=== PATIENT | male | born 1940 | race Caucasian/White ===

== ENCOUNTER 2020-03-17 08:55 | Inpatient (IN) ==
[2020-03-17] MEDS ORDERED: Clindamycin 900 MG/D5W BAG 900 MG/50 ML BAG IVPB ONE (10:04)
[2020-03-17 10:41] LABS: ABS Basophils 0.1 10^3/ul (0-0.2); ABS Eosinophils 0.3 10^3/ul (0-0.6); ABS Lymphocytes 1.7 10^3/ul (1.0-4.8); ABS Monocytes 0.6 10^3/ul (0-0.8); ABS Neutrophils 5.5 10^3/ul (1.5-7.7); Eosinophil % 3.5 %; Hematocrit 36 % (42-52); Hemoglobin 12.3 g/dL (14.0-18.0); Lymphocyte % 20.8 %; Mean Corpuscular HGB Conc 34 g/dL (31-36); Mean Corpuscular Hemoglobin 30 pg (27-31); Mean Corpuscular Volume 89 fL (80-94); Mean Platelet Volume 8.1 fL (7.4-10.4); Platelet Count 256 10^3/uL (150-450); Red Blood Count 4.05 10^6 /uL (4.18-5.48); Red Cell Distribution Width 14 % (10-15); White Blood Count 8.2 10^3/uL (3.5-10.8)
[2020-03-17 11:16] LABS: BUN/Creatinine Ratio 16.1 (8-20); Calcium 9.4 mg/dL (8.6-10.3); EGFR African American 30.7 (>60); EGFR Non-African American 25.3 (>60); Potassium 4.6 mmol/L (3.5-5.0)
[2020-03-17] MEDS: D5W 1/2 NS 1000 ml BAG 1,000 ML IV SCH (12:35)
[2020-03-17] MEDS ORDERED: Iohexol 300 (CONTRAST) 10 ML SDV ONE (12:55)
[2020-03-17] MEDS ORDERED: Lidocaine 1% VIAL 10 MG/ML VIAL ONE ×2 (13:15→13:37)
[2020-03-17] MEDS: Clindamycin 300 MG IVPREMIX 300 MG/50 ML SDV IV SCH (20:13)
[2020-03-18] MEDS: D5W 1/2 NS 1000 ml BAG 1,000 ML IV SCH (00:04)
[2020-03-18] MEDS: Clindamycin 300 MG IVPREMIX 300 MG/50 ML SDV IV SCH ×3 (03:37→22:08)
[2020-03-18] MEDS ORDERED: NS 0.9% 1000 ml BAG 1,000 ML IV SCH (08:15)
[2020-03-18] MEDS: SPIRIVA Respimat (tiotropium) 2.5 mcg/inh Inhaler INH SCH (08:32)
[2020-03-18 09:52] LABS: BUN/Creatinine Ratio 15.5 (8-20); Calcium 8.7 mg/dL (8.6-10.3); EGFR African American 31.1 (>60); EGFR Non-African American 25.7 (>60); Potassium 4.3 mmol/L (3.5-5.0)
[2020-03-18] MEDS: Fluticasone NASAL SPRAY 50MCG 16 gm SPRAY BTL INTRANASAL SCH (10:19)
[2020-03-18] MEDS: Mirabegron 50 mg ER TAB (NF) PO SCH (10:19)
[2020-03-19] MEDS: Clindamycin 300 MG IVPREMIX 300 MG/50 ML SDV IV SCH (04:13)
[2020-03-19] MEDS: SPIRIVA Respimat (tiotropium) 2.5 mcg/inh Inhaler INH SCH (08:01)
[2020-03-19 08:22] LABS: BUN/Creatinine Ratio 14.2 (8-20); Calcium 8.6 mg/dL (8.6-10.3); EGFR African American 28.2 (>60); EGFR Non-African American 23.3 (>60); Potassium 4.6 mmol/L (3.5-5.0)
[2020-03-19] MEDS: Fluticasone NASAL SPRAY 50MCG 16 gm SPRAY BTL INTRANASAL SCH (09:31)
[2020-03-19] MEDS: Mirabegron 50 mg ER TAB (NF) PO SCH (09:32)
[2020-03-19] MEDS ORDERED: Dextrose 50% Syringe 50 ml 25 GM/50 ML SYRINGE IV PUSH PRN (10:36)
[2020-03-19] MEDS: Heparin 5000 UNITS/ML 1 mL VIAL SUBCUT SCH ×2 (12:25→20:41)
[2020-03-19 13:00] LABS: Urine Appearance Clear; Urine Bilirubin Negative (Negative); Urine Blood 1+ (Negative); Urine Color Straw; Urine Glucose Negative (Negative); Urine Ketones Negative (Negative); Urine Nitrite Negative (Negative); Urine Protein Negative (Negative); Urine Specific Gravity 1.005 (1.010-1.030); Urine Urobilinogen Negative (Negative)
[2020-03-19 13:05] LABS: Urine Bacteria 1+ (Absent); Urine Red Blood Cell Trace(0-2/hpf) (Absent); Urine Squamous Epithelial Cell Present (Absent); Urine White Blood Cell Trace(0-5/hpf) (Absent)
[2020-03-19 20:27] LABS: Urine Appearance Clear; Urine Bilirubin Negative (Negative); Urine Blood 1+ (Negative); Urine Color Straw; Urine Glucose Negative (Negative); Urine Ketones Negative (Negative); Urine Nitrite Negative (Negative); Urine Protein Negative (Negative); Urine Specific Gravity 1.004 (1.010-1.030); Urine Urobilinogen Negative (Negative)
[2020-03-19 20:35] LABS: Urine Bacteria Absent (Absent); Urine Red Blood Cell Trace(0-2/hpf) (Absent); Urine White Blood Cell Absent (Absent)
[2020-03-20] MEDS: Heparin 5000 UNITS/ML 1 mL VIAL SUBCUT SCH ×3 (05:47→20:32)
[2020-03-20] MEDS: Fluticasone NASAL SPRAY 50MCG 16 gm SPRAY BTL INTRANASAL SCH (08:55)
[2020-03-20] MEDS: Mirabegron 50 mg ER TAB (NF) PO SCH (08:55)
[2020-03-20] MEDS: SPIRIVA Respimat (tiotropium) 2.5 mcg/inh Inhaler INH SCH (09:06)
[2020-03-20 10:39] LABS: Calcium 8.6 mg/dL (8.6-10.3); EGFR African American 29.6 (>60); EGFR Non-African American 24.4 (>60); Potassium 4.8 mmol/L (3.5-5.0)
[2020-03-20 11:51] LABS: Urine Creatinine Concentration 42.99 mg/dL
[2020-03-21] MEDS: Heparin 5000 UNITS/ML 1 mL VIAL SUBCUT SCH ×3 (05:10→20:00)
[2020-03-21 06:41] LABS: Hematocrit 32 % (42-52); Hemoglobin 11.3 g/dL (14.0-18.0); Mean Corpuscular HGB Conc 35 g/dL (31-36); Mean Corpuscular Hemoglobin 31 pg (27-31); Mean Corpuscular Volume 88 fL (80-94); Mean Platelet Volume 8.1 fL (7.4-10.4); Platelet Count 216 10^3/uL (150-450); Red Blood Count 3.67 10^6 /uL (4.18-5.48); Red Cell Distribution Width 14 % (10-15)
[2020-03-21 07:28] LABS: BUN/Creatinine Ratio 16.3 (8-20); Calcium 8.6 mg/dL (8.6-10.3); EGFR African American 31.8 (>60); EGFR Non-African American 26.3 (>60); Potassium 4.5 mmol/L (3.5-5.0)
[2020-03-21] MEDS ORDERED: Magnesium Sulfate 2 gm BAG 2 GM/50 ML BAG IVPB ONE (08:07)
[2020-03-21] MEDS: SPIRIVA Respimat (tiotropium) 2.5 mcg/inh Inhaler INH SCH (09:00)
[2020-03-21] MEDS: Fluticasone NASAL SPRAY 50MCG 16 gm SPRAY BTL INTRANASAL SCH (09:27)
[2020-03-21] MEDS: Mirabegron 50 mg ER TAB (NF) PO SCH (09:28)
[2020-03-21] MEDS ORDERED: Furosemide 20 mg/2 ml IV VIAL IV ONE (19:31)
[2020-03-22] MEDS: Heparin 5000 UNITS/ML 1 mL VIAL SUBCUT SCH ×3 (05:50→21:18)
[2020-03-22 06:50] LABS: Hematocrit 33 % (42-52); Hemoglobin 11.6 g/dL (14.0-18.0); Mean Corpuscular HGB Conc 35 g/dL (31-36); Mean Corpuscular Hemoglobin 30 pg (27-31); Mean Corpuscular Volume 88 fL (80-94); Platelet Count 223 10^3/uL (150-450); Red Blood Count 3.81 10^6 /uL (4.18-5.48); Red Cell Distribution Width 14 % (10-15)
[2020-03-22 07:06] LABS: BUN/Creatinine Ratio 19.8 (8-20); Calcium 8.8 mg/dL (8.6-10.3); EGFR African American 38.8 (>60); EGFR Non-African American 32.1 (>60); Magnesium 1.8 mg/dL (1.9-2.7); Potassium 4.4 mmol/L (3.5-5.0)
[2020-03-22] MEDS ORDERED: Magnesium Sulfate IV 1GM/100ML 1 GM/100 ML BAG IV ONE (08:59)
[2020-03-22] MEDS: Mirabegron 50 mg ER TAB (NF) PO SCH (09:38)
[2020-03-22] MEDS: Fluticasone NASAL SPRAY 50MCG 16 gm SPRAY BTL INTRANASAL SCH (11:20)
[2020-03-22] MEDS: SPIRIVA Respimat (tiotropium) 2.5 mcg/inh Inhaler INH SCH (11:55)
[2020-03-22] MEDS ORDERED: Furosemide 20 mg/2 ml IV VIAL IV ONE (12:35)
[2020-03-22] MEDS ORDERED: Ondansetron 4 mg VIAL 2 MG/ML 2 ml VIAL IV PRN (16:24)
[2020-03-23] MEDS: Heparin 5000 UNITS/ML 1 mL VIAL SUBCUT SCH ×2 (05:17→14:33)
[2020-03-23] MEDS: Fluticasone NASAL SPRAY 50MCG 16 gm SPRAY BTL INTRANASAL SCH (08:33)
[2020-03-23] MEDS: Mirabegron 50 mg ER TAB (NF) PO SCH (08:33)
[2020-03-23 08:37] LABS: Hematocrit 35 % (42-52); Hemoglobin 12.2 g/dL (14.0-18.0); Mean Corpuscular HGB Conc 35 g/dL (31-36); Mean Corpuscular Hemoglobin 30 pg (27-31); Mean Corpuscular Volume 88 fL (80-94); Mean Platelet Volume 8.3 fL (7.4-10.4); Platelet Count 234 10^3/uL (150-450); Red Cell Distribution Width 14 % (10-15); White Blood Count 10.1 10^3/uL (3.5-10.8)
[2020-03-23 08:51] LABS: BUN/Creatinine Ratio 21.4 (8-20); Calcium 9.3 mg/dL (8.6-10.3); EGFR African American 42.5 (>60); EGFR Non-African American 35.1 (>60); Magnesium 1.8 mg/dL (1.9-2.7); Potassium 4.6 mmol/L (3.5-5.0)
[2020-03-23] MEDS: SPIRIVA Respimat (tiotropium) 2.5 mcg/inh Inhaler INH SCH (09:25)
[2020-03-23] MEDS ORDERED: Magnesium Sulfate 2 gm BAG 2 GM/50 ML BAG IVPB ONE (09:35)
[2020-03-23 12:42] VITALS: BP 107/53
== END 2020-03-23 13:30 | DRG 243 ==
LOC: MEDTELE 08:55 → CHICATH 08:55
PROVIDERS: ADMIT Specialist; ATTEND Specialist

== ENCOUNTER 2020-09-30 14:25 | Inpatient (IN) ==
[2020-09-30] MEDS ORDERED: NS 0.9% 1000 ml BAG 1,000 ML IV ONE (14:31)
[2020-09-30 14:47] LABS: Hematocrit 37 % (42-52); Hemoglobin 12.2 g/dL (14.0-18.0); Mean Corpuscular HGB Conc 33 g/dL (31-36); Mean Corpuscular Hemoglobin 28 pg (27-31); Mean Corpuscular Volume 85 fL (80-94); Mean Platelet Volume 7.7 fL (7.4-10.4); Platelet Count 260 10^3/uL (150-450); Red Blood Count 4.31 10^6 /uL (4.18-5.48); Red Cell Distribution Width 15 % (10-15); White Blood Count 16.4 10^3/uL (3.5-10.8)
[2020-09-30] MEDS ORDERED: Alteplase (100 mg Vial) 100 mg VIAL ONE (14:52)
[2020-09-30] MEDS ORDERED: Alteplase (100 mg Vial) 100 mg VIAL IV ONE ×2 (14:53)
[2020-09-30 14:56] LABS: Activated Partial Thrombo Time 29.4 seconds (26.0-38.0); INR 1.39 (0.82-1.09)
[2020-09-30 15:00] LABS: ALT 7 U/L (7-52); AST 11 U/L (13-39); Albumin 3.1 g/dL (3.2-5.2); Albumin/Globulin Ratio 0.8 (1-3); Alkaline Phosphatase 69 U/L (34-104); Anion Gap 8 mmol/L (2-11); Blood Urea Nitrogen 39 mg/dL (6-24); CO2 Carbon Dioxide 30 mmol/L (22-32); Calcium 9.1 mg/dL (8.6-10.3); Chloride 96 mmol/L (101-111); Cholesterol 87 mg/dL; EGFR African American 69.5 (>60); EGFR Non-African American 57.4 (>60); Globulin 3.7 g/dL (2-4); Glucose 144 mg/dL (70-100); HDL Cholesterol 34.8 mg/dL; LDL Cholesterol 40 mg/dL; Potassium 3.8 mmol/L (3.5-5.0); Sodium 134 mmol/L (135-145); Total Protein 6.8 g/dL (6.4-8.9); Triglycerides 63 mg/dL
[2020-09-30 15:15] LABS: Troponin I 0.03 ng/mL (<0.03)
[2020-09-30] MEDS ORDERED: Iodixanol (CONTRAST) 320 MG/ML 100 ML SDV IV ONE (15:40)
[2020-09-30 15:56] LABS: ABS Basophils 0.1 10^3/ul (0-0.2); ABS Lymphocytes 0.9 10^3/ul (1.0-4.8); ABS Neutrophils 13.4 10^3/ul (1.5-7.7); Eosinophil % 0.1 %; Lymphocyte % 5.4 %
[2020-09-30] MEDS: Lactated Ringers 1000 ml BAG 1,000 ML IV SCH (19:45)
[2020-09-30] MEDS ORDERED: Enoxaparin 40 MG/0.4 ML SYR SUBCUT SCH (21:00)
[2020-10-01 05:12] LABS: Hematocrit 32 % (42-52); Hemoglobin 10.7 g/dL (14.0-18.0); Mean Corpuscular HGB Conc 33 g/dL (31-36); Mean Corpuscular Hemoglobin 28 pg (27-31); Mean Corpuscular Volume 85 fL (80-94); Mean Platelet Volume 7.3 fL (7.4-10.4); Platelet Count 217 10^3/uL (150-450); Red Blood Count 3.77 10^6 /uL (4.18-5.48); Red Cell Distribution Width 16 % (10-15); White Blood Count 13.6 10^3/uL (3.5-10.8)
[2020-10-01] MEDS: Lactated Ringers 1000 ml BAG 1,000 ML IV SCH (05:21)
[2020-10-01 05:30] LABS: Albumin 2.7 g/dL (3.2-5.2); Albumin/Globulin Ratio 0.8 (1-3); BUN/Creatinine Ratio 32.7 (8-20); Calcium 8.6 mg/dL (8.6-10.3); EGFR African American 80.9 (>60); EGFR Non-African American 66.8 (>60); Globulin 3.2 g/dL (2-4); Total Bilirubin 0.4 mg/dL (0.2-1.0); Total Protein 5.9 g/dL (6.4-8.9)
[2020-10-01 05:48] LABS: Activated Partial Thrombo Time 29.6 seconds (26.0-38.0); INR 1.34 (0.82-1.09)
[2020-10-01 06:08] LABS: Fibrinogen 642.3 mg/dL (110.8-404.3)
[2020-10-01] MEDS ORDERED: Potassium Chlor 20 meq TAB.ER PO ONE (07:16)
[2020-10-01 08:38] LABS: Urine Appearance Cloudy; Urine Bilirubin Negative (Negative); Urine Blood 1+ (Negative); Urine Color Yellow; Urine Glucose Negative (Negative); Urine Ketones Negative (Negative); Urine Nitrite Negative (Negative); Urine Protein 1+(30 mg/dL) (Negative); Urine Specific Gravity 1.018 (1.010-1.030); Urine Urobilinogen Negative (Negative)
[2020-10-01 08:43] LABS: Urine Bacteria Absent (Absent); Urine Red Blood Cell Trace(0-2/hpf) (Absent); Urine White Blood Cell 3+(>20/hpf) (Absent)
[2020-10-01] MEDS ORDERED: Magnesium Hydroxide LIQ 30 ML UDC PO PRN (11:58)
[2020-10-01] MEDS ORDERED: Senna TAB 8.6 mg TAB PO PRN (11:58)
[2020-10-01] MEDS: Nystatin TOP POWDER 15 GM BTL TOPICAL SCH ×2 (14:51→20:16)
[2020-10-01] MEDS: Mometasone/Formoter 100/5 MDI INH SCH (19:00)
[2020-10-02 04:53] LABS: Hematocrit 31 % (42-52); Hemoglobin 10.4 g/dL (14.0-18.0); Mean Corpuscular HGB Conc 33 g/dL (31-36); Mean Corpuscular Hemoglobin 29 pg (27-31); Mean Corpuscular Volume 86 fL (80-94); Mean Platelet Volume 7.5 fL (7.4-10.4); Platelet Count 224 10^3/uL (150-450); Red Blood Count 3.63 10^6 /uL (4.18-5.48); Red Cell Distribution Width 15 % (10-15); White Blood Count 11.4 10^3/uL (3.5-10.8)
[2020-10-02 04:55] LABS: ABS Basophils 0.1 10^3/ul (0-0.2); ABS Eosinophils 0.1 10^3/ul (0-0.6); ABS Lymphocytes 2.4 10^3/ul (1.0-4.8); ABS Monocytes 2.1 10^3/ul (0-0.8); ABS Neutrophils 6.7 10^3/ul (1.5-7.7); Eosinophil % 0.7 %; Lymphocyte % 21.1 %
[2020-10-02 05:13] LABS: BUN/Creatinine Ratio 30.1 (8-20); Calcium 8.3 mg/dL (8.6-10.3); EGFR African American 95.1 (>60); EGFR Non-African American 78.6 (>60); Potassium 3.5 mmol/L (3.5-5.0)
[2020-10-02] MEDS ORDERED: Potassium Chlor 20 meq TAB.ER PO ONE (07:08)
[2020-10-02] MEDS: Mometasone/Formoter 100/5 MDI INH SCH ×2 (07:51→19:48)
[2020-10-02] MEDS: Aspirin EC 81 mg TAB.EC (enteric coated) PO SCH (08:25)
[2020-10-02] MEDS: Nystatin TOP POWDER 15 GM BTL TOPICAL SCH ×3 (08:32→20:38)
[2020-10-03] MEDS ORDERED: Perflutren Lipid Microsphere 3 ML VIAL ONE (08:20)
[2020-10-03] MEDS: Mometasone/Formoter 100/5 MDI INH SCH ×2 (08:36→20:13)
[2020-10-03] MEDS: Aspirin EC 81 mg TAB.EC (enteric coated) PO SCH (09:21)
[2020-10-03] MEDS: Nystatin TOP POWDER 15 GM BTL TOPICAL SCH ×3 (09:23→23:27)
[2020-10-03] MEDS ORDERED: Iodixanol (CONTRAST) 320 MG/ML 100 ML SDV IV ONE (09:40)
[2020-10-04 06:15] LABS: Hematocrit 32 % (42-52); Hemoglobin 10.7 g/dL (14.0-18.0); Mean Corpuscular HGB Conc 34 g/dL (31-36); Mean Corpuscular Hemoglobin 29 pg (27-31); Mean Corpuscular Volume 85 fL (80-94); Mean Platelet Volume 7.1 fL (7.4-10.4); Platelet Count 266 10^3/uL (150-450); Red Blood Count 3.72 10^6 /uL (4.18-5.48); Red Cell Distribution Width 15 % (10-15); White Blood Count 8.8 10^3/uL (3.5-10.8)
[2020-10-04 06:41] LABS: BUN/Creatinine Ratio 22.9 (8-20); Calcium 8.5 mg/dL (8.6-10.3); EGFR African American 108.4 (>60); EGFR Non-African American 89.6 (>60); Potassium 3.9 mmol/L (3.5-5.0)
[2020-10-04] MEDS: Mometasone/Formoter 100/5 MDI INH SCH ×2 (08:56→20:22)
[2020-10-04] MEDS: Aspirin EC 81 mg TAB.EC (enteric coated) PO SCH (10:21)
[2020-10-04 11:15] LABS: Corrected Retic Count 0.5 % (0.5-1.5); Hematocrit for Retic CNT 33 % (42-52); Immature Retic Fraction 0.42
[2020-10-04 11:36] LABS: Total Iron Binding Capacity 147 mcg/dL (250-450); Transferrin 105 mg/dL (203-362)
[2020-10-04 11:40] LABS: % Iron Saturation 14 % (15-55); Iron < 20 ug/dL (50-212); Unsaturated Iron Binding < 132 ug/dL
[2020-10-04 11:45] LABS: Ferritin 518.9 ng/mL (24-336)
[2020-10-04 11:50] LABS: Vitamin B12 366 pg/mL (180-914)
[2020-10-04] MEDS: Nystatin TOP POWDER 15 GM BTL TOPICAL SCH ×3 (13:05→21:50)
[2020-10-05] MEDS: Aspirin EC 81 mg TAB.EC (enteric coated) PO SCH (08:07)
[2020-10-05] MEDS: Nystatin TOP POWDER 15 GM BTL TOPICAL SCH ×3 (08:12→21:23)
[2020-10-05] MEDS: Mometasone/Formoter 100/5 MDI INH SCH ×2 (09:04→19:22)
[2020-10-06 06:50] LABS: INR 1.14 (0.82-1.09)
[2020-10-06] MEDS: Aspirin EC 81 mg TAB.EC (enteric coated) PO SCH (08:14)
[2020-10-06] MEDS: Mometasone/Formoter 100/5 MDI INH SCH ×2 (09:19→21:12)
[2020-10-06] MEDS: Nystatin TOP POWDER 15 GM BTL TOPICAL SCH ×3 (12:57→20:43)
[2020-10-07] MEDS: Mometasone/Formoter 100/5 MDI INH SCH ×2 (07:29→19:50)
[2020-10-07] MEDS: Nystatin TOP POWDER 15 GM BTL TOPICAL SCH ×3 (09:21→21:34)
[2020-10-07 13:27] LABS: Calcium 9.1 mg/dL (8.6-10.3); EGFR African American 111.5 (>60); EGFR Non-African American 92.2 (>60); Magnesium 1.8 mg/dL (1.9-2.7); Potassium 4.4 mmol/L (3.5-5.0)
[2020-10-07] MEDS ORDERED: Magnesium Sulfate 2 gm BAG 2 GM/50 ML BAG IVPB ONE (13:47)
[2020-10-08 06:27] LABS: ABS Basophils 0.1 10^3/ul (0-0.2); ABS Eosinophils 0.3 10^3/ul (0-0.6); ABS Lymphocytes 2.9 10^3/ul (1.0-4.8); ABS Monocytes 1.1 10^3/ul (0-0.8); ABS Neutrophils 7.1 10^3/ul (1.5-7.7); Hematocrit 33 % (42-52); Hemoglobin 10.8 g/dL (14.0-18.0); Lymphocyte % 24.9 %; Mean Corpuscular HGB Conc 33 g/dL (31-36); Mean Corpuscular Hemoglobin 28 pg (27-31); Mean Corpuscular Volume 85 fL (80-94); Platelet Count 446 10^3/uL (150-450); Red Blood Count 3.81 10^6 /uL (4.18-5.48); Red Cell Distribution Width 16 % (10-15); White Blood Count 11.5 10^3/uL (3.5-10.8)
[2020-10-08 06:46] LABS: BUN/Creatinine Ratio 18.8 (8-20); Calcium 8.9 mg/dL (8.6-10.3); EGFR African American 113.1 (>60); EGFR Non-African American 93.5 (>60); Magnesium 2.1 mg/dL (1.9-2.7); Potassium 4.2 mmol/L (3.5-5.0)
[2020-10-08] MEDS: Mometasone/Formoter 100/5 MDI INH SCH ×2 (08:37→21:00)
[2020-10-08] MEDS: Nystatin TOP POWDER 15 GM BTL TOPICAL SCH ×3 (09:33→20:49)
[2020-10-08] MEDS: Insulin GLARGINE 100 un/ml 10 ml VIAL SUBCUT SCH (20:48)
[2020-10-09] MEDS: Nystatin TOP POWDER 15 GM BTL TOPICAL SCH ×3 (08:39→20:46)
[2020-10-09] MEDS: Mometasone/Formoter 100/5 MDI INH SCH ×2 (09:02→20:23)
[2020-10-09] MEDS: Insulin GLARGINE 100 un/ml 10 ml VIAL SUBCUT SCH (20:46)
[2020-10-10] MEDS ORDERED: Polyethylene Glycol 3350 17 GM PACKET PO PRN (07:27)
[2020-10-10] MEDS ORDERED: Senna TAB 8.6 mg TAB PO PRN (07:27)
[2020-10-10] MEDS: Mometasone/Formoter 100/5 MDI INH SCH (08:18)
[2020-10-10] MEDS: Nystatin TOP POWDER 15 GM BTL TOPICAL SCH ×2 (10:04→13:04)
[2020-10-10 12:09] VITALS: BP 120/55
== END 2020-10-10 14:00 | DRG 62 ==
LOC: ED 14:25 → SUATTDRO 16:51 → ICU 16:51 → MEDTELE 10-02 15:14
PROVIDERS: ADMIT Internal Medicine Critical Care Medicine; ATTEND Internal Medicine

== ENCOUNTER 2021-07-01 18:04 | Inpatient (IN) ==
[2021-07-01] MEDS ORDERED: Levofloxacin 750 MG IVPREMIX 750 MG/150 ML BAG IVPB ONE (18:20)
[2021-07-01 18:43] LABS: Hematocrit 33 % (42-52); Hemoglobin 10.8 g/dL (14.0-18.0); Mean Corpuscular HGB Conc 33 g/dL (31-36); Mean Corpuscular Hemoglobin 27 pg (27-31); Mean Corpuscular Volume 82 fL (80-94); Mean Platelet Volume 6.8 fL (7.4-10.4); Platelet Count 475 10^3/uL (150-450); Red Blood Count 4.02 10^6 /uL (4.18-5.48); Red Cell Distribution Width 15 % (10-15); White Blood Count 29.7 10^3/uL (3.5-10.8)
[2021-07-01] MEDS ORDERED: Lactated Ringers 1000 ml BAG 1,000 ML IV ONE (18:48)
[2021-07-01 18:59] LABS: Rapid COVID-19 Molecular Undetected (Undetected)
[2021-07-01 19:00] LABS: ALT 6 U/L (7-52); AST 10 U/L (13-39); Albumin 2.9 g/dL (3.2-5.2); Albumin/Globulin Ratio 0.7 (1-3); Alkaline Phosphatase 92 U/L (35-149); Blood Urea Nitrogen 54 mg/dL (6-24); C Reactive Protein 186.19 mg/L (<8.01); CO2 Carbon Dioxide 21 mmol/L (22-32); Chloride 101 mmol/L (101-111); Globulin 4.3 g/dL (2-4); Glucose 181 mg/dL (70-100); Sodium 130 mmol/L (135-145); Total Protein 7.2 g/dL (6.4-8.9); eGFR CKD-EPI 31.3 (>60)
[2021-07-01 19:01] LABS: Anion Gap 8 mmol/L (2-11); Potassium 5.4 mmol/L (3.5-5.0)
[2021-07-01 19:14] LABS: Activated Partial Thrombo Time 41.5 seconds (26.0-38.0); INR 2.18 (0.86-1.15)
[2021-07-01 19:28] LABS: Troponin I 0.03 ng/mL (<0.03)
[2021-07-01 19:32] LABS: ABS Lymphocytes 1.7 10^3/ul (1.0-4.8); ABS Monocytes 2.2 10^3/ul (0-0.8); ABS Neutrophils 25.8 10^3/ul (1.5-7.7); Lymphocyte % 5.7 %
[2021-07-01 20:15] LABS: Urine Appearance Turbid; Urine Bilirubin Negative (Negative); Urine Blood 1+ (Negative); Urine Color Yellow; Urine Glucose Negative (Negative); Urine Ketones Negative (Negative); Urine Nitrite Negative (Negative); Urine Protein 3+(>=500 mg/dL) (Negative); Urine Specific Gravity 1.012 (1.002-1.030); Urine Urobilinogen Negative (Negative)
[2021-07-01 20:29] LABS: Influenza A Molecular Negative (Negative); Influenza B Molecular Negative (Negative)
[2021-07-01 20:42] LABS: Urine Bacteria Absent (Absent); Urine Red Blood Cell 3+(>10/hpf) (Absent); Urine White Blood Cell 3+(>20/hpf) (Absent)
[2021-07-01] MEDS ORDERED: Ondansetron 4 mg VIAL 2 MG/ML 2 ml VIAL IV PRN (20:55)
[2021-07-01] MEDS ORDERED: Albuterol/Ipratropium NEB.SOL (2.5/0.5 MG) 3 ML NEB.SOLN INH PRN (21:15)
[2021-07-01] MEDS ORDERED: Dextrose 50% Syringe 50 ml 25 GM/50 ML SYRINGE IV PUSH PRN (21:33)
[2021-07-01] MEDS ORDERED: NS 0.9% 500 ml BAG 500 ML IV ONE (21:34)
[2021-07-01] MEDS ORDERED: Sodium Polystyrene ORAL.SUSP 15 GM/60 ML BTL PO ONE (21:40)
[2021-07-02] MEDS: Insulin GLARGINE 100 un/ml 10 ml VIAL SUBCUT SCH ×2 (00:23→21:08)
[2021-07-02] MEDS: cefTRIAXone 1 gm/50 mL NS BAG 1 GM/50 ML BAG IVPB SCH ×2 (00:24→21:07)
[2021-07-02] MEDS: Albuterol/Ipratropium NEB.SOL (2.5/0.5 MG) 3 ML NEB.SOLN INH SCH ×4 (00:24→22:31)
[2021-07-02 04:31] LABS: Hematocrit 29 % (42-52); Hemoglobin 9.3 g/dL (14.0-18.0); Mean Corpuscular HGB Conc 33 g/dL (31-36); Mean Corpuscular Hemoglobin 27 pg (27-31); Mean Corpuscular Volume 83 fL (80-94); Platelet Count 384 10^3/uL (150-450); Red Blood Count 3.43 10^6 /uL (4.18-5.48); Red Cell Distribution Width 15 % (10-15); White Blood Count 27.3 10^3/uL (3.5-10.8)
[2021-07-02 04:39] LABS: ABS Lymphocytes 2.1 10^3/ul (1.0-4.8); ABS Monocytes 2.1 10^3/ul (0-0.8); Eosinophil % 0.1 %; Lymphocyte % 7.7 %
[2021-07-02 04:47] LABS: Blood Urea Nitrogen 58 mg/dL (6-24); CO2 Carbon Dioxide 22 mmol/L (22-32); Calcium 8.9 mg/dL (8.6-10.3); Chloride 104 mmol/L (101-111); Glucose 153 mg/dL (70-100); Sodium 135 mmol/L (135-145); eGFR CKD-EPI 26.8 (>60)
[2021-07-02 04:55] LABS: Anion Gap 9 mmol/L (2-11); Potassium 5.5 mmol/L (3.5-5.0)
[2021-07-02] MEDS ORDERED: NS 0.9% 1000 ml BAG 1,000 ML IV ONE (06:06)
[2021-07-02] MEDS: Mometasone/Formoter 100/5 MDI INH SCH ×2 (07:39→21:15)
[2021-07-02] MEDS: NS 0.9% 1000 ml BAG 1,000 ML IV SCH (09:06)
[2021-07-02] MEDS: Potassium Chlor 10 meq TAB PO SCH (09:07)
[2021-07-02 10:25] LABS: Troponin I 0.47 ng/mL (<0.03)
[2021-07-02 11:02] LABS: Troponin I 0.03 ng/mL (<0.03)
[2021-07-02 18:25] LABS: Calcium 8.4 mg/dL (8.6-10.3); Potassium 4.3 mmol/L (3.5-5.0)
[2021-07-02 18:30] LABS: eGFR CKD-EPI 31.8 (>60)
[2021-07-03 05:41] LABS: ABS Eosinophils 0.1 10^3/ul (0-0.6); ABS Lymphocytes 2.3 10^3/ul (1.0-4.8); ABS Monocytes 1.5 10^3/ul (0-0.8); ABS Neutrophils 15.2 10^3/ul (1.5-7.7); Eosinophil % 0.4 %; Hematocrit 26 % (42-52); Hemoglobin 8.7 g/dL (14.0-18.0); Lymphocyte % 12.2 %; Mean Corpuscular HGB Conc 33 g/dL (31-36); Mean Corpuscular Hemoglobin 27 pg (27-31); Mean Corpuscular Volume 83 fL (80-94); Mean Platelet Volume 7.2 fL (7.4-10.4); Platelet Count 389 10^3/uL (150-450); Red Blood Count 3.18 10^6 /uL (4.18-5.48); Red Cell Distribution Width 15 % (10-15); White Blood Count 19.1 10^3/uL (3.5-10.8)
[2021-07-03 05:50] LABS: C Reactive Protein 149.72 mg/L (<8.01); Calcium 8.5 mg/dL (8.6-10.3); Potassium 3.9 mmol/L (3.5-5.0); eGFR CKD-EPI 35.9 (>60)
[2021-07-03] MEDS: Albuterol/Ipratropium NEB.SOL (2.5/0.5 MG) 3 ML NEB.SOLN INH SCH ×3 (07:29→23:57)
[2021-07-03] MEDS: Mometasone/Formoter 100/5 MDI INH SCH ×2 (07:29→20:46)
[2021-07-03] MEDS: Potassium Chlor 10 meq TAB PO SCH (10:36)
[2021-07-03] MEDS: NS 0.9% 1000 ml BAG 1,000 ML IV SCH (13:23)
[2021-07-03] MEDS: Insulin GLARGINE 100 un/ml 10 ml VIAL SUBCUT SCH (20:26)
[2021-07-03] MEDS: cefTRIAXone 1 gm/50 mL NS BAG 1 GM/50 ML BAG IVPB SCH (20:26)
[2021-07-04] MEDS: NS 0.9% 1000 ml BAG 1,000 ML IV SCH (04:13)
[2021-07-04] MEDS: Mometasone/Formoter 100/5 MDI INH SCH ×2 (07:04→19:24)
[2021-07-04] MEDS: Albuterol/Ipratropium NEB.SOL (2.5/0.5 MG) 3 ML NEB.SOLN INH SCH ×3 (07:04→22:08)
[2021-07-04] MEDS: Potassium Chlor 10 meq TAB PO SCH (08:36)
[2021-07-04 11:51] LABS: ABS Basophils 0.1 10^3/ul (0-0.2); ABS Lymphocytes 1.7 10^3/ul (1.0-4.8); ABS Monocytes 1.5 10^3/ul (0-0.8); ABS Neutrophils 14.8 10^3/ul (1.5-7.7); Eosinophil % 0.2 %; Hematocrit 27 % (42-52); Hemoglobin 8.8 g/dL (14.0-18.0); Lymphocyte % 9.6 %; Mean Corpuscular HGB Conc 33 g/dL (31-36); Mean Corpuscular Hemoglobin 27 pg (27-31); Mean Corpuscular Volume 84 fL (80-94); Mean Platelet Volume 6.8 fL (7.4-10.4); Platelet Count 413 10^3/uL (150-450); Red Blood Count 3.21 10^6 /uL (4.18-5.48); Red Cell Distribution Width 15 % (10-15); White Blood Count 18.1 10^3/uL (3.5-10.8)
[2021-07-04 12:05] LABS: Calcium 8.2 mg/dL (8.6-10.3); Potassium 3.8 mmol/L (3.5-5.0); eGFR CKD-EPI 68.3 (>60)
[2021-07-04] MEDS: cefTRIAXone 1 gm/50 mL NS BAG 1 GM/50 ML BAG IVPB SCH (20:17)
[2021-07-04] MEDS: Insulin GLARGINE 100 un/ml 10 ml VIAL SUBCUT SCH (20:18)
[2021-07-05] MEDS: NS 0.9% 1000 ml BAG 1,000 ML IV SCH ×2 (02:52→12:54)
[2021-07-05 04:51] LABS: Hematocrit 26 % (42-52); Hemoglobin 8.5 g/dL (14.0-18.0); Mean Corpuscular HGB Conc 32 g/dL (31-36); Mean Corpuscular Hemoglobin 27 pg (27-31); Mean Corpuscular Volume 83 fL (80-94); Mean Platelet Volume 6.5 fL (7.4-10.4); Platelet Count 399 10^3/uL (150-450); Red Blood Count 3.17 10^6 /uL (4.18-5.48); Red Cell Distribution Width 15 % (10-15); White Blood Count 14.6 10^3/uL (3.5-10.8)
[2021-07-05 05:03] LABS: ABS Basophils 0.1 10^3/ul (0-0.2); ABS Eosinophils 0.1 10^3/ul (0-0.6); ABS Lymphocytes 2.3 10^3/ul (1.0-4.8); ABS Monocytes 1.4 10^3/ul (0-0.8); ABS Neutrophils 10.7 10^3/ul (1.5-7.7); Eosinophil % 0.9 %; Lymphocyte % 15.7 %
[2021-07-05 05:16] LABS: C Reactive Protein 89.09 mg/L (<8.01); Calcium 8.3 mg/dL (8.6-10.3); Potassium 3.5 mmol/L (3.5-5.0); eGFR CKD-EPI 87.2 (>60)
[2021-07-05] MEDS: Albuterol/Ipratropium NEB.SOL (2.5/0.5 MG) 3 ML NEB.SOLN INH SCH ×3 (06:13→23:25)
[2021-07-05] MEDS: Mometasone/Formoter 100/5 MDI INH SCH ×2 (06:13→19:20)
[2021-07-05] MEDS: Potassium Chlor 10 meq TAB PO SCH (09:11)
[2021-07-05] MEDS: Insulin GLARGINE 100 un/ml 10 ml VIAL SUBCUT SCH (20:42)
[2021-07-05] MEDS: cefTRIAXone 1 gm/50 mL NS BAG 1 GM/50 ML BAG IVPB SCH (21:38)
[2021-07-06 04:59] LABS: Hematocrit 28 % (42-52); Mean Corpuscular HGB Conc 32 g/dL (31-36); Mean Corpuscular Hemoglobin 26 pg (27-31); Mean Corpuscular Volume 83 fL (80-94); Mean Platelet Volume 6.8 fL (7.4-10.4); Platelet Count 383 10^3/uL (150-450); Red Cell Distribution Width 15 % (10-15)
[2021-07-06 05:28] LABS: ABS Basophils 0.1 10^3/ul (0-0.2); ABS Eosinophils 0.1 10^3/ul (0-0.6); ABS Lymphocytes 2.2 10^3/ul (1.0-4.8); ABS Monocytes 2.1 10^3/ul (0-0.8); ABS Neutrophils 20.6 10^3/ul (1.5-7.7); Eosinophil % 0.4 %; Lymphocyte % 8.7 %; Nucleated Red Blood Cells % 0.1
[2021-07-06] MEDS: Albuterol/Ipratropium NEB.SOL (2.5/0.5 MG) 3 ML NEB.SOLN INH SCH ×3 (06:52→23:00)
[2021-07-06] MEDS: Mometasone/Formoter 100/5 MDI INH SCH ×2 (06:59→20:09)
[2021-07-06] MEDS ORDERED: Furosemide 20 mg/2 ml IV VIAL IV SLOW PU ONE (08:34)
[2021-07-06] MEDS: Fluoxetine LIQ 20 MG/5 ML UDC PO SCH (10:57)
[2021-07-06] MEDS: Potassium Chloride LIQUID 20 MEQ/15 ML LIQUID PO SCH (10:59)
[2021-07-06 12:58] LABS: Urine Appearance Turbid; Urine Bilirubin Negative (Negative); Urine Blood 2+ (Negative); Urine Color Yellow; Urine Glucose Negative (Negative); Urine Ketones Negative (Negative); Urine Nitrite Negative (Negative); Urine Protein 2+(100 mg/dL) (Negative); Urine Urobilinogen Negative (Negative)
[2021-07-06 13:01] LABS: Urine Bacteria 1+ (Absent); Urine Red Blood Cell 3+(>10/hpf) (Absent); Urine White Blood Cell 3+(>20/hpf) (Absent)
[2021-07-06] MEDS ORDERED: Vancomycin per Pharmacy 1 EA NOTE FOLLOW UP SCH (17:00)
[2021-07-06] MEDS ORDERED: Vancomycin 1,000 MG in NS 0.9% 250 ml 250 ML IVPB ONE (17:00)
[2021-07-06] MEDS ORDERED: Vancomycin 2,000 MG in NS 0.9% 500 ml BAG 500 ML IVPB ONE (18:00)
[2021-07-06] MEDS: Cefepime 2 GM in Dextrose 2 GM/50 ML BAG IV SCH (19:23)
[2021-07-06] MEDS: Insulin GLARGINE 100 un/ml 10 ml VIAL SUBCUT SCH (23:22)
[2021-07-07 05:22] LABS: Hematocrit 25 % (42-52); Hemoglobin 8.1 g/dL (14.0-18.0); Mean Corpuscular HGB Conc 33 g/dL (31-36); Mean Corpuscular Hemoglobin 27 pg (27-31); Mean Corpuscular Volume 83 fL (80-94); Mean Platelet Volume 6.5 fL (7.4-10.4); Platelet Count 329 10^3/uL (150-450); Red Blood Count 3.04 10^6 /uL (4.18-5.48); Red Cell Distribution Width 16 % (10-15); White Blood Count 23.5 10^3/uL (3.5-10.8)
[2021-07-07 05:37] LABS: ABS Eosinophils 0.1 10^3/ul (0-0.6); ABS Lymphocytes 3.1 10^3/ul (1.0-4.8); ABS Monocytes 1.8 10^3/ul (0-0.8); ABS Neutrophils 18.4 10^3/ul (1.5-7.7); Eosinophil % 0.6 %; Lymphocyte % 13.4 %
[2021-07-07] MEDS: Cefepime 2 GM in Dextrose 2 GM/50 ML BAG IV SCH ×2 (05:50→18:20)
[2021-07-07] MEDS: Mometasone/Formoter 100/5 MDI INH SCH ×2 (07:18→20:43)
[2021-07-07] MEDS: Albuterol/Ipratropium NEB.SOL (2.5/0.5 MG) 3 ML NEB.SOLN INH SCH ×3 (07:18→20:43)
[2021-07-07] MEDS: Potassium Chloride LIQUID 20 MEQ/15 ML LIQUID PO SCH (09:28)
[2021-07-07] MEDS: Fluoxetine LIQ 20 MG/5 ML UDC PO SCH (09:28)
[2021-07-07] MEDS: Vancomycin 1,250 MG in NS 0.9% 250 ml 250 ML IVPB SCH ×2 (09:34→22:26)
[2021-07-07] MEDS ORDERED: Furosemide 20 mg/2 ml IV VIAL IV SLOW PU ONE (12:24)
[2021-07-07] MEDS: Insulin GLARGINE 100 un/ml 10 ml VIAL SUBCUT SCH (22:26)
[2021-07-08] MEDS: Cefepime 2 GM in Dextrose 2 GM/50 ML BAG IV SCH (06:29)
[2021-07-08] MEDS ORDERED: Albuterol/Ipratropium NEB.SOL (2.5/0.5 MG) 3 ML NEB.SOLN INH SCH (07:00)
[2021-07-08] MEDS: Mometasone/Formoter 100/5 MDI INH SCH (07:41)
[2021-07-08] MEDS: Potassium Chloride LIQUID 20 MEQ/15 ML LIQUID PO SCH (07:54)
[2021-07-08] MEDS: Fluoxetine LIQ 20 MG/5 ML UDC PO SCH (07:54)
[2021-07-08 08:48] LABS: Hematocrit 25 % (42-52); Hemoglobin 8.3 g/dL (14.0-18.0); Mean Corpuscular HGB Conc 34 g/dL (31-36); Mean Corpuscular Hemoglobin 28 pg (27-31); Mean Corpuscular Volume 82 fL (80-94); Mean Platelet Volume 6.6 fL (7.4-10.4); Platelet Count 318 10^3/uL (150-450); Red Blood Count 3.01 10^6 /uL (4.18-5.48); Red Cell Distribution Width 15 % (10-15); White Blood Count 14.4 10^3/uL (3.5-10.8)
[2021-07-08] MEDS ORDERED: Furosemide 40 mg/4 ml IV VIAL IV SLOW PU ONE (09:44)
[2021-07-08 09:45] LABS: ABS Eosinophils 0.2 10^3/ul (0-0.6); ABS Monocytes 1.1 10^3/ul (0-0.8); ABS Neutrophils 10.1 10^3/ul (1.5-7.7); Eosinophil % 1.3 %; Lymphocyte % 20.8 %
[2021-07-08] MEDS ORDERED: Vancomycin Trough Check NOTE FOLLOW UP ONE (10:00)
[2021-07-08] MEDS: cefTRIAXone 1 gm/50 mL NS BAG 1 GM/50 ML BAG IVPB SCH (10:54)
[2021-07-08 11:16] LABS: eGFR CKD-EPI 73.9 (>60)
[2021-07-08] MEDS ORDERED: Albuterol/Ipratropium NEB.SOL (2.5/0.5 MG) 3 ML NEB.SOLN ONE (19:14)
[2021-07-08] MEDS: Insulin GLARGINE 100 un/ml 10 ml VIAL SUBCUT SCH (22:28)
[2021-07-09] MEDS: Mometasone/Formoter 100/5 MDI INH SCH ×3 (03:08→19:58)
[2021-07-09 06:10] LABS: ABS Basophils 0.1 10^3/ul (0-0.2); ABS Eosinophils 0.2 10^3/ul (0-0.6); ABS Lymphocytes 2.1 10^3/ul (1.0-4.8); ABS Monocytes 1.2 10^3/ul (0-0.8); ABS Neutrophils 9.7 10^3/ul (1.5-7.7); Eosinophil % 1.3 %; Hematocrit 27 % (42-52); Hemoglobin 8.6 g/dL (14.0-18.0); Mean Corpuscular HGB Conc 33 g/dL (31-36); Mean Corpuscular Hemoglobin 27 pg (27-31); Mean Corpuscular Volume 82 fL (80-94); Mean Platelet Volume 6.8 fL (7.4-10.4); Platelet Count 344 10^3/uL (150-450); Red Blood Count 3.23 10^6 /uL (4.18-5.48); Red Cell Distribution Width 16 % (10-15); White Blood Count 13.3 10^3/uL (3.5-10.8)
[2021-07-09] MEDS: Fluoxetine LIQ 20 MG/5 ML UDC PO SCH (08:24)
[2021-07-09] MEDS: Potassium Chloride LIQUID 20 MEQ/15 ML LIQUID PO SCH (08:24)
[2021-07-09 10:15] LABS: Calcium 8.4 mg/dL (8.6-10.3); Potassium 3.7 mmol/L (3.5-5.0); eGFR CKD-EPI 81.4 (>60)
[2021-07-09] MEDS: cefTRIAXone 1 gm/50 mL NS BAG 1 GM/50 ML BAG IVPB SCH (10:34)
[2021-07-09] MEDS: Insulin GLARGINE 100 un/ml 10 ml VIAL SUBCUT SCH (22:31)
[2021-07-10] MEDS ORDERED: Magnesium Hydroxide LIQ 30 ML UDC PO ONE (00:36)
[2021-07-10] MEDS: Mometasone/Formoter 100/5 MDI INH SCH (06:49)
[2021-07-10] MEDS: Fluoxetine LIQ 20 MG/5 ML UDC PO SCH (10:16)
[2021-07-10] MEDS: Potassium Chloride LIQUID 20 MEQ/15 ML LIQUID PO SCH (10:16)
[2021-07-10] MEDS: cefTRIAXone 1 gm/50 mL NS BAG 1 GM/50 ML BAG IVPB SCH (10:22)
[2021-07-10 12:39] VITALS: BP 130/60
[2021-07-10 14:53] LABS: Rapid COVID-19 Molecular Undetected (Undetected)
== END 2021-07-10 17:20 | DRG 872 ==
LOC: EDHOLD 18:04 → ED 18:04 → SUATTDRO 20:56 → MED 07-02 06:22 → SUATTDRO 07-02 09:50
PROVIDERS: ADMIT Internal Medicine; ATTEND Internal Medicine